=== PATIENT | male | born 1985 | race Caucasian/White ===

== ENCOUNTER 2021-08-08 00:46 | Emergency (ER) | payer SELFPAY ==
[2021-08-08 01:53] LABS: BASOPHIL 0.6 % (0-2); EOSINOPHIL 1.5 % (0-5); HCT 47.3 % (42.0-52.0); HGB 16.3 g/dl (13.2-18.0); LYMPHOCYTE 6.6 % (15-48); MCH 30.5 pg (25.0-31.0); MCHC 34.5 g/dL (32.0-36.0); MCV 88.6 fL (78.0-100.0); MONOCYTE 5.3 % (0-12); MPV 11.4 fL (6.0-9.5); NEUTROPHIL 85.4 % (41-80); NRBC 0; PLT 127 K/uL (150-400); RBC 5.34 M/uL (4.70-6.00); RDW 12.3 % (11.5-14.0); WBC 5.3 K/uL (4.0-10.5)
[2021-08-08 02:02] LABS: INFLUENZA A NAA NEGATIVE (NEGATIVE)
[2021-08-08 02:11] LABS: CORONAVIRUS 2019 SARS-COV-2 POSITIVE (NEGATIVE)
[2021-08-08 02:23] LABS: BILIRUBIN - TOTAL 0.6 mg/dL (0.2-1.0); BUN/CREAT RATIO (CALC) 8.7 RATIO; CREATININE 1.15 mg/dL (0.67-1.17); GLOBULIN (CALCULATION) 3.2 g/dL; POTASSIUM 4.2 mmol/L (3.5-5.1); TOTAL PROTEIN 7.2 g/dL (6.4-8.2)
[2021-08-08] MEDS ORDERED: ONDANSETRON ODT4 MG PO (04:45)
== END 2021-08-08 04:52 | disposition home or self-care (01) ==
LOC: FER 00:46
PROVIDERS: Emergency Medicine
DX: U07.1 COVID-19 (principal); H70.92 Unspecified mastoiditis, left ear; Z28.310 Unvaccinated for COVID-19
CPT/HCPCS: 36415; 70450; 80053; 85025; J7030; U0002